=== PATIENT | female | born 1950 | race Caucasian/White ===

== ENCOUNTER 2019-05-31 10:41 | Outpatient (CLI) | payer MEDICARE ==
[~2019-05-31 10:41] MED LIST: Iopamidol 300 61% 100 ML VIAL FS ONE
--- NOTE | 2019-05-31 12:33 | CT ---
Exam: ABDOMEN CT WITH CONTRAST: HISTORY: Left upper quadrant pain. COMPARISON: None. FINDINGS: Atelectatic changes in the right lung base. Normal heart size. Atherosclerosis of the aorta. No evidence of periaortic fat stranding. Portal vein is patent. Abnormal appearance of the gallbladder. Gallbladder wall enhancement with a small amount of perichole cystic fluid. Gallstones are noted. Multiple hypodensities throughout the hepatic parenchyma. Largest hypodensity is in the posterior seg ment of the right hepatic lobe measuring 1.5 x 1.2 cm with an attenuation coefficient of 19 Hounsfield units. Spleen, pancreas, and adrenal glands have appropriate enhancement. No gastrohepatic, retrocrural, or periportal lymphadenopathy. Nonobstructing calculus in the left renal pelvis measuring 0.3 cm. Nonobstructing 3 mm calculus in th e right renal pelvis. Bilaterally no evidence of obstructive uropathy. Gastric mucosa, duodenum are identified and are grossly unremarkable. There does appear to be mucosal thickening involving small bowel loops in the epigastric region and left upper quadrant. There appears to be mucosal thickening involving the proximal jejunum. Visualized distal ileal loops and th e ileocecal junction is unremarkable. Visualized colon demonstrates contrast and fecal material. Occasional diverticulum in the left hemicolon. No lytic or blastic lesions in the osseous structures IMPRESSION: 1. CT evidence of cholelithiasis with probable cholecystitis. 2. Multiple hepatic hypodensities likely representing cysts. Evaluation is limited. 3. Mucosal prominence involving proximal jejunal loops. Correlate for infectious or inflammatory ente ritis. Transcribed Date/Time: 05/31/2019 1:14 PM
== END 2019-05-31 10:42 | disposition home or self-care (01) ==
LOC: SCSCT 10:41
PROVIDERS: ATTEND Internal Medicine Gastroenterology
DX: R10.12 Left upper quadrant pain (principal); K80.20 Calculus of gallbladder without cholecystitis without obstruction
CPT/HCPCS: 74160; Q9967